=== PATIENT | male | born 1940 | race Caucasian/White ===

== ENCOUNTER 2017-07-02 05:49 | Day surgery (SDC) | payer MEDICARE, OTHER ==
[2017-07-01 12:51] LABS: BASOPHILS % (AUTO) 0.2 % (0-1); EOSINOPHILS # (AUTO) 0.3 X10'3 (0-0.9); EOSINOPHILS % (AUTO) 3.8 % (0-6); HEMATOCRIT 38.4 % (42.0-52.0); HEMOGLOBIN 13.6 g/dl (14.0-17.9); LYMPHOCYTES # (AUTO) 1.3 X10'3 (1.1-4.8); LYMPHOCYTES % (AUTO) 15.2 % (21-51); MEAN CORPUSCULAR HEMOGLOBIN 35.8 PG (27.0-31.0); MEAN CORPUSCULAR HGB CONC 35.3 % (33.0-36.5); MEAN CORPUSCULAR VOLUME 101.4 FL (78-98); MEAN PLATELET VOLUME 7.6 FL (7.4-10.4); MONOCYTES # (AUTO) 1.1 X10'3 (0-0.9); MONOCYTES % (AUTO) 12.8 % (2-12); PLATELET COUNT 234 X10'3 (140-440); RED BLOOD COUNT 3.79 X10'6 (4.70-6.10); RED CELL DISTRIBUTION WIDTH 13.6 % (11.5-14.5); WHITE BLOOD COUNT 8.9 X10'3 (4.5-11.0)
[2017-07-01 13:00] LABS: ALBUMIN 3.5 G/DL (3.4-5.0); ANION GAP 9 (8-16); BLOOD UREA NITROGEN 12 MG/DL (7-18); CALCIUM 8.4 MG/DL (8.5-10.1); CHLORIDE 95 MMOL/L (99-107); GLUCOSE 106 MG/DL (70-104); POTASSIUM 4.9 MMOL/L (3.5-5.1); SODIUM 130 MMOL/L (135-145); TOTAL CARBON DIOXIDE 26.4 MMOL/L (24-32); eGFR > 90 ML/MIN
[2017-07-01 13:02] LABS: INR 1.1 INR; PARTIAL THROMBOPLASTIN TIME 30 SECONDS (22-32); PROTHROMBIN TIME 11.2 SECONDS (9.0-12.0)
[~2017-07-02] VITALS: Ht 180.3 cm; Wt 84.3 kg
[2017-07-02] VITALS (16 sets, daily range): BP systolic 122–158; BP diastolic 65–87
[~2017-07-02 05:49] MED LIST: ASPI-1009 PO; ATEN-169 PO; CLOP75TA35 PO; LOSA25TA96 PO; MAGN400O6 PO; MULT-1074 PO; OMEP-84 PO; SIMV10TA2 PO
[2017-07-02] MEDS ORDERED: ASPI-611 PO (06:14)
[2017-07-02] MEDS ORDERED: LORazepam 0.5 MG tablet PO PRN (06:15)
[2017-07-02] MEDS ORDERED: normal saline 1000ml 1,000 ML IV SCH (06:15)
[2017-07-02] MEDS ORDERED: diphenhydrAMINE 25mg capsule PO PRN (06:15)
[2017-07-02] MEDS ORDERED: iohexol 350MG/ML 100ml bottle IV ONE ×2 (08:51→10:00)
[2017-07-02] MEDS ORDERED: LIDOcaine 1%/PF (10mg/ml) 5ml vial ONE (08:51)
[2017-07-02] MEDS ORDERED: heparin 1,000unit/ml 10ml vial 10 ML ONE (08:51)
[2017-07-02] MEDS ORDERED: fentaNYL/PF 50MCG/1 ML 2ML syringe ONE (08:51)
[2017-07-02] MEDS ORDERED: iohexol 350 MG/ML 50ML vial IV ONE (08:51)
[2017-07-02] MEDS ORDERED: midazolam 2 mg/2 ml injection ONE (08:51)
[2017-07-02] MEDS ORDERED: nitroGLYCERIN-Tridil 50MG/D5W 250 ML IV ONE (08:52)
[2017-07-02 13:10] LABS: ISTAT HGB ART 12.9 g/dl (14.0-18.0); ISTAT Hct ART 38 %PCV (42-52); ISTAT Hct MIX 38 %PCV (42-52); ISTAT O2 SATURATION ARTERIAL 98 % (95-98); ISTAT O2 SATURATION MIX VENOUS 69 % (60-80); ISTAT SOURCE ART; ISTAT SOURCE MIX
== END 2017-07-02 16:05 | disposition home or self-care (01) ==
LOC: SSTAY O 05:49
PROVIDERS: ATTEND Internal Medicine Cardiovascular Disease
DX: I25.10 Atherosclerotic heart disease of native coronary artery without angina pectoris (principal); E78.4 Other hyperlipidemia; Z95.1 Presence of aortocoronary bypass graft; I25.2 Old myocardial infarction; Z98.890 Other specified postprocedural states; I11.0 Hypertensive heart disease with heart failure; I50.30 Unspecified diastolic (congestive) heart failure; Z90.49 Acquired absence of other specified parts of digestive tract; N40.0 Benign prostatic hyperplasia without lower urinary tract symptoms; K21.9 Gastro-esophageal reflux disease without esophagitis; Z79.82 Long term (current) use of aspirin; Z87.891 Personal history of nicotine dependence; E78.00 Pure hypercholesterolemia, unspecified; I48.91 Unspecified atrial fibrillation
CPT/HCPCS: 36415; 80048; 82803; 85014; 85025; 85610; 85730; 93005; 93461; 93567; A6257; C1769; C1894; J1644; J2001; J2250; J3010; J3490; J7030; Q0163; Q9967; 99152; 99153; A4620

== ENCOUNTER 2017-09-08 05:47 | Day surgery (SDC) | payer MEDICARE, OTHER ==
[2017-09-07 14:01] LABS: BASOPHILS % (AUTO) 0 % (0-1); EOSINOPHILS # (AUTO) 0.2 X10'3 (0-0.9); HEMATOCRIT 40.6 % (42.0-52.0); HEMOGLOBIN 13.9 g/dl (14.0-17.9); LYMPHOCYTES # (AUTO) 1.3 X10'3 (1.1-4.8); LYMPHOCYTES % (AUTO) 22.6 % (21-51); MEAN CORPUSCULAR HEMOGLOBIN 35.6 PG (27.0-31.0); MEAN CORPUSCULAR HGB CONC 34.3 % (33.0-36.5); MEAN CORPUSCULAR VOLUME 103.9 FL (78-98); MEAN PLATELET VOLUME 7.2 FL (7.4-10.4); MONOCYTES # (AUTO) 1.1 X10'3 (0-0.9); MONOCYTES % (AUTO) 18.2 % (2-12); NEUTROPHILS # (AUTO) 3.3 X10'3 (1.8-7.7); NEUTROPHILS % (AUTO) 55.2 % (42-75); PLATELET COUNT 224 X10'3 (140-440); RED BLOOD COUNT 3.91 X10'6 (4.70-6.10); RED CELL DISTRIBUTION WIDTH 13.3 % (11.5-14.5); WHITE BLOOD COUNT 5.9 X10'3 (4.5-11.0)
[2017-09-07 14:10] LABS: ALBUMIN 3.8 G/DL (3.4-5.0); ANION GAP 6 (8-16); BLOOD UREA NITROGEN 7 MG/DL (7-18); BUN/CREATININE RATIO 9.2 (5.4-32.0); CALCIUM 8.9 MG/DL (8.5-10.1); CHLORIDE 90 MMOL/L (99-107); CREATININE 0.76 MG/DL (0.60-1.10); GLUCOSE 105 MG/DL (70-104); POTASSIUM 4.7 MMOL/L (3.5-5.1); SODIUM 124 MMOL/L (135-145); TOTAL CARBON DIOXIDE 28.3 MMOL/L (24-32); eGFR > 90 ML/MIN
[2017-09-07 14:11] LABS: INR 1.1 INR; PARTIAL THROMBOPLASTIN TIME 30 SECONDS (22-32); PROTHROMBIN TIME 11.1 SECONDS (9.0-12.0)
[~2017-09-08] VITALS: Ht 180.3 cm; Wt 80.8 kg
[2017-09-08] VITALS (18 sets, daily range): BP systolic 86–161; BP diastolic 54–81
[~2017-09-08 05:47] MED LIST changes: -ASPI-1009 PO; +ASPI-611 PO; -MAGN400O6 PO; -OMEP-84 PO
[2017-09-08] MEDS ORDERED: normal saline 1000ml 1,000 ML IV SCH ×2 (06:10→10:00)
[2017-09-08] MEDS ORDERED: CHOL100046 PO (06:17)
[2017-09-08] MEDS ORDERED: ceFAZolin 1GM/D5W- ADD-VANTAGE 50 ML IV ONE ×2 (06:30→07:29)
[2017-09-08] MEDS ORDERED: LIDOcaine 1% w/EPI 1:100,000 30ml vial (MDV) ONE (07:28)
[2017-09-08] MEDS ORDERED: ceFAZolin 1000mg inj ONE (07:28)
[2017-09-08] MEDS ORDERED: fentaNYL/PF 50MCG/1 ML 2ML syringe ONE (07:28)
[2017-09-08] MEDS ORDERED: midazolam 2 mg/2 ml injection ONE ×3 (07:28→08:49)
[2017-09-08] MEDS ORDERED: HYDROcodone/acetaminophen 10/325mg tab PO PRN (10:00)
[2017-09-08] MEDS ORDERED: HYDROcodone/acetaminophen 5mg/325mg tablet PO PRN (10:00)
[2017-09-08] MEDS ORDERED: ceFAZolin 1GM/D5W- ADD-VANTAGE 50 ML IV SCH (16:00)
== END 2017-09-08 16:00 | disposition home or self-care (01) ==
LOC: SSTAY O 05:47
PROVIDERS: ATTEND Internal Medicine Cardiovascular Disease
DX: I49.5 Sick sinus syndrome (principal); E78.5 Hyperlipidemia, unspecified; I25.10 Atherosclerotic heart disease of native coronary artery without angina pectoris; I35.0 Nonrheumatic aortic (valve) stenosis; I44.1 Atrioventricular block, second degree; I45.2 Bifascicular block; I44.4 Left anterior fascicular block; I25.2 Old myocardial infarction; I11.0 Hypertensive heart disease with heart failure; I50.30 Unspecified diastolic (congestive) heart failure; K21.9 Gastro-esophageal reflux disease without esophagitis; N40.0 Benign prostatic hyperplasia without lower urinary tract symptoms; M19.90 Unspecified osteoarthritis, unspecified site; Z98.41 Cataract extraction status, right eye; Z90.89 Acquired absence of other organs; Z95.0 Presence of cardiac pacemaker; Z95.1 Presence of aortocoronary bypass graft; Z95.2 Presence of prosthetic heart valve; Z98.42 Cataract extraction status, left eye; Z72.89 Other problems related to lifestyle; Z86.74 Personal history of sudden cardiac arrest; Z87.891 Personal history of nicotine dependence; Z79.82 Long term (current) use of aspirin; Z79.899 Other long term (current) drug therapy; Z98.890 Other specified postprocedural states
CPT/HCPCS: 33208; 36415; 71046; 80048; 85025; 85610; 85730; 93005; 99152; 99153; A4565; A6449; C1785; C1894; C1898; J0690; J2250; J3010; J3490; J7030; A4620

== ENCOUNTER 2019-02-12 10:39 | Inpatient (IN) | payer MEDICARE, OTHER ==
[~2019-02-12] VITALS: Ht 180.3 cm; Wt 75.0 kg
[~2019-02-12 10:39] MED LIST changes: +CHOL100046 PO
[2019-02-12 11:20] LABS: BASOPHILS % (AUTO) 0.5 % (0-1); EOSINOPHILS # (AUTO) 0.2 X10'3 (0-0.9); EOSINOPHILS % (AUTO) 3.3 % (0-6); HEMATOCRIT 39.6 % (42.0-52.0); HEMOGLOBIN 13.6 g/dl (14.0-17.9); LYMPHOCYTES # (AUTO) 0.9 X10'3 (1.1-4.8); LYMPHOCYTES % (AUTO) 15.5 % (21-51); MEAN CORPUSCULAR HEMOGLOBIN 36.9 PG (27.0-31.0); MEAN CORPUSCULAR HGB CONC 34.3 g/dL (33.0-36.5); MEAN CORPUSCULAR VOLUME 107.5 FL (78-98); MEAN PLATELET VOLUME 7.8 FL (7.4-10.4); MONOCYTES # (AUTO) 1.1 X10'3 (0-0.9); NEUTROPHILS # (AUTO) 3.5 X10'3 (1.8-7.7); NEUTROPHILS % (AUTO) 61.7 % (42-75); PLATELET COUNT 163 X10'3 (140-440); RED BLOOD COUNT 3.68 X10'6 (4.70-6.10); RED CELL DISTRIBUTION WIDTH 12.7 % (11.5-14.5); WHITE BLOOD COUNT 5.6 X10'3 (4.5-11.0)
[2019-02-12 11:34] LABS: PARTIAL THROMBOPLASTIN TIME 29 SECONDS (22-32)
[2019-02-12] MEDS ORDERED: furosemide 10 MG/1 ML 10ml inj IV ONE (11:35)
[2019-02-12 11:39] LABS: ALANINE AMINOTRANSFERASE 28 U/L (12-78); ALBUMIN 3.6 G/DL (3.4-5.0); ALKALINE PHOSPHATASE 73 IU/L (46-116); ANION GAP 7 (8-16); ASPARTATE AMINO TRANSFERASE 21 U/L (10-37); BILIRUBIN,TOTAL 1.1 MG/DL (0.1-1.0); BLOOD UREA NITROGEN 15 MG/DL (7-18); BUN/CREATININE RATIO 17.9 (5.4-32.0); CALCIUM 8.9 MG/DL (8.5-10.1); CHLORIDE 99 MMOL/L (99-107); CREATININE 0.84 MG/DL (0.60-1.10); GLUCOSE 101 MG/DL (70-104); POTASSIUM 3.9 MMOL/L (3.5-5.1); SODIUM 132 MMOL/L (135-145); TOTAL CARBON DIOXIDE 25.7 MMOL/L (24-32); TOTAL PROTEIN 7.2 G/DL (6.4-8.2); eGFR 88 ML/MIN
[2019-02-12 11:57] LABS: PLATELET ESTIMATE NORMAL; TOTAL CELLS COUNTED 100
[2019-02-12 11:58] LABS: LARGE PLATELETS FEW
[2019-02-12] MEDS ORDERED: potassium CL 10mEq/100ml bag 100 ML IV PRN ×2 (12:45)
[2019-02-12] MEDS ORDERED: nitroGLYCERIN 0.4mg SUBLingual tab SL PRN (12:45)
[2019-02-12] MEDS ORDERED: mag hydrox/Alum hydrox/simeth 30ml oral suspension PO PRN (12:45)
[2019-02-12] MEDS ORDERED: magnesium hydroxide 30ml (MOM) UD suspension PO PRN (12:45)
[2019-02-12] MEDS ORDERED: magnesium 2GM in 50ml NS 50 ML IV PRN (12:45)
[2019-02-12] MEDS ORDERED: magnesium 4gm in 100ml NS 100 ML IV PRN (12:45)
[2019-02-12] MEDS ORDERED: magnesium Cl slow-release 64mg tablet PO PRN (12:45)
[2019-02-12] MEDS ORDERED: potassium Cl 20 mEq SR tablet PO PRN ×2 (12:45)
[2019-02-12] MEDS ORDERED: acetaminophen 325mg tablet PO PRN ×2 (12:45)
[2019-02-12] MEDS ORDERED: ondansetron/PF 4mg/2ml inj IV PRN (12:45)
[2019-02-12] MEDS ORDERED: ATEN-169 PO (12:46)
[2019-02-12] MEDS ORDERED: [UNRECOGNIZED DRUG - OTHER] PO (12:48)
[2019-02-12 12:54] LABS: CLARITY,URINE CLEAR (Clear); COLOR,URINE YELLOW (Yellow); GLUCOSE, URINE NEGATIVE (Neg); KETONES,URINE NEGATIVE (Neg); LEUKOCYTE ESTERASE ,URINE NEGATIVE (Neg); NITRITES, URINE NEGATIVE (Neg); OCCULT BLOOD,URINE NEGATIVE (Neg); PH,URINE 5.5 (4.8-8.0); PROTEIN,URINE NEGATIVE (Neg); UROBILINOGEN,URINE 0.2 E.U/dL (0.2-1.0)
[2019-02-12 12:57] LABS: UA COLLECTION TYPE NON-SPECIFIED
--- NOTE | 2019-02-12 15:30 | NUR ---
Patient in room [facility]. I have received report from ED RN and had the opportunity to ask questions and assume patient care.
--- NOTE | 2019-02-12 18:30 | NUR ---
Problems reprioritized. Patient report given, questions answered & plan of care reviewed with ZORAN LUNA.
--- NOTE | 2019-02-12 18:44 | NUR ---
Patient in room [facility]. I have received report from Yeison London and had the opportunity to ask questions and assume patient care. Addendum: 02/12/19 at 1845 by Emelia Aguilar RN Amended: Links added.
[2019-02-12 19:30] VITALS: BP 127/78
[2019-02-12] MEDS ORDERED: [UNRECOGNIZED DRUG - OTHER] PO SCH (20:00)
--- NOTE | 2019-02-12 20:15 | NUR ---
pt took hs meds at this time and talked with son on the phone.
[2019-02-12] MEDS: atorvastatin 10mg tablet PO SCH (20:31)
[2019-02-12] MEDS: furosemide 20 MG/2 ML vial IV SCH (20:31)
--- NOTE | 2019-02-12 21:59 | NUR ---
resting without changes.
--- NOTE | 2019-02-12 23:04 | NUR ---
pt awoke briefly and batteries changed. no complaints.
[2019-02-13] VITALS: BP 129/85
--- NOTE | 2019-02-13 00:18 | NUR ---
resting without changes
--- NOTE | 2019-02-13 02:15 | NUR ---
resting without changes.
--- NOTE | 2019-02-13 03:29 | NUR ---
resting without changes.
--- NOTE | 2019-02-13 03:33 | NUR ---
awoke ton void 450cc cl yellow urine out and sob with exertion. sats 97%and Hr 102, called tele heart rate back down to 84-85 and paced with underlying afib. pt ok now.
--- NOTE | 2019-02-13 03:44 | NUR ---
is unit given to pt and texhing done. x5 used best range at 500.
--- NOTE | 2019-02-13 04:54 | NUR ---
resting eyes closed without s&s of distress at this time.
--- NOTE | 2019-02-13 06:11 | NUR ---
Problems reprioritized. Patient report given, questions answered & plan of care reviewed with Yeison London. Addendum: 02/13/19 at 0611 by Emelia Aguilar RN Amended: Links added.
[2019-02-13 06:15] LABS: BASOPHILS % (AUTO) 0.6 % (0-1); EOSINOPHILS # (AUTO) 0.3 X10'3 (0-0.9); HEMOGLOBIN 12.9 g/dl (14.0-17.9); LYMPHOCYTES # (AUTO) 0.8 X10'3 (1.1-4.8); LYMPHOCYTES % (AUTO) 15.5 % (21-51); MEAN CORPUSCULAR HEMOGLOBIN 36.7 PG (27.0-31.0); MEAN CORPUSCULAR HGB CONC 34.1 g/dL (33.0-36.5); MEAN CORPUSCULAR VOLUME 107.6 FL (78-98); MEAN PLATELET VOLUME 8.2 FL (7.4-10.4); MONOCYTES # (AUTO) 1.2 X10'3 (0-0.9); MONOCYTES % (AUTO) 22.2 % (2-12); NEUTROPHILS % (AUTO) 56.7 % (42-75); PLATELET COUNT 161 X10'3 (140-440); RED BLOOD COUNT 3.53 X10'6 (4.70-6.10); RED CELL DISTRIBUTION WIDTH 12.6 % (11.5-14.5); WHITE BLOOD COUNT 5.3 X10'3 (4.5-11.0)
--- NOTE | 2019-02-13 06:30 | NUR ---
Patient in room [facility]. I have received report from Emelia LUNA and had the opportunity to ask questions and assume patient care.
[2019-02-13 06:34] LABS: ALBUMIN 3.2 G/DL (3.4-5.0); ANION GAP 7 (8-16); BLOOD UREA NITROGEN 11 MG/DL (7-18); BUN/CREATININE RATIO 12.6 (5.4-32.0); CALCIUM 9.1 MG/DL (8.5-10.1); CHLORIDE 98 MMOL/L (99-107); CREATININE 0.87 MG/DL (0.60-1.10); GLUCOSE 96 MG/DL (70-104); MAGNESIUM 1.7 MG/DL (1.5-2.4); POTASSIUM 3.7 MMOL/L (3.5-5.1); SODIUM 134 MMOL/L (135-145); TOTAL CARBON DIOXIDE 29.5 MMOL/L (24-32); eGFR 85 ML/MIN
[2019-02-13 07:38] VITALS: BP 129/88
[2019-02-13] MEDS: K and/or MAG REPLACEMENT MC SCH (08:00)
[2019-02-13] MEDS: clopidogrel 75mg tablet PO SCH (08:17)
[2019-02-13] MEDS: multivitamins, therapeutics tablet PO SCH (08:17)
[2019-02-13] MEDS: vitamin D (cholecalciferol) 1,000 unit tablet PO SCH (08:17)
[2019-02-13] MEDS: atenolol 50mg tablet PO SCH (08:18)
[2019-02-13] MEDS: losartan 50mg tablet PO SCH (08:19)
[2019-02-13] MEDS: furosemide 20 MG/2 ML vial IV SCH ×2 (08:20→19:49)
[2019-02-13] MEDS: enoxaparin 40mg/0.4ml syringe SQ SCH (08:20)
[2019-02-13] MEDS ORDERED: guaiFENesin 200 MG/10 ML oral syrup UD cup PO PRN (16:45)
[2019-02-13] MEDS ORDERED: ipratropium/albuterol 3ml nebule NEB PRN (16:45)
[2019-02-13 17:42] VITALS: BP 129/88
[2019-02-13 18:00] VITALS: BP 115/66
--- NOTE | 2019-02-13 18:30 | NUR ---
Problems reprioritized. Patient report given, questions answered & plan of care reviewed with Emelia LUNA.
[2019-02-13] MEDS: fluticasone nasal spray 16GM bottle NS SCH (18:31)
--- NOTE | 2019-02-13 18:40 | NUR ---
Patient in room [facility]. I have received report from KRISTIN LUNA and had the opportunity to ask questions and assume patient care. Addendum: 02/13/19 at 1841 by Emelia Aguilar RN Amended: Links added.
--- NOTE | 2019-02-13 19:40 | NUR ---
pt took hs meds no complaints states he feels better.
[2019-02-13] MEDS: atorvastatin 10mg tablet PO SCH (19:50)
--- NOTE | 2019-02-13 21:40 | NUR ---
pt resting eyes closed without changes.
--- NOTE | 2019-02-13 23:40 | NUR ---
pt resting without changes. no s&s of distress.
[2019-02-14] VITALS: BP 113/75
--- NOTE | 2019-02-14 01:02 | NUR ---
Student documentation: I have reviewed and agree with all interventions, assessments performed and documented by Danica gupta Rn student.Student Medication Administration: For this medication-pass time frame, all medication were reviewed, dispensed, administered and documented per hospital policy by Danica gupta Rn student. Addendum: 02/14/19 at 0103 by Emelia Aguilar RN Amended: Links added.
--- NOTE | 2019-02-14 02:34 | NUR ---
resting eyes closed without s&s of distress at this time.
[2019-02-14 06:24] LABS: BASOPHILS % (AUTO) 0.5 % (0-1); EOSINOPHILS # (AUTO) 0.3 X10'3 (0-0.9); EOSINOPHILS % (AUTO) 4.8 % (0-6); HEMOGLOBIN 13.3 g/dl (14.0-17.9); LYMPHOCYTES # (AUTO) 1.1 X10'3 (1.1-4.8); LYMPHOCYTES % (AUTO) 19.9 % (21-51); MEAN CORPUSCULAR HEMOGLOBIN 37.3 PG (27.0-31.0); MEAN CORPUSCULAR HGB CONC 34.9 g/dL (33.0-36.5); MEAN CORPUSCULAR VOLUME 106.9 FL (78-98); MEAN PLATELET VOLUME 8.2 FL (7.4-10.4); MONOCYTES # (AUTO) 1.1 X10'3 (0-0.9); MONOCYTES % (AUTO) 21.5 % (2-12); NEUTROPHILS # (AUTO) 2.8 X10'3 (1.8-7.7); NEUTROPHILS % (AUTO) 53.3 % (42-75); PLATELET COUNT 172 X10'3 (140-440); RED BLOOD COUNT 3.56 X10'6 (4.70-6.10); RED CELL DISTRIBUTION WIDTH 12.8 % (11.5-14.5); WHITE BLOOD COUNT 5.3 X10'3 (4.5-11.0)
--- NOTE | 2019-02-14 06:28 | NUR ---
Problems reprioritized. Patient report given, questions answered & plan of care reviewed with Mayra London. Addendum: 02/14/19 at 0629 by Emelia Aguilar RN Amended: Links added.
--- NOTE | 2019-02-14 06:34 | NUR ---
Patient in room [facility]. I have received report from JEREMY MEEHAN and had the opportunity to ask questions and assume patient care.
[2019-02-14 06:36] LABS: ALBUMIN 3.1 G/DL (3.4-5.0); ANION GAP 6 (8-16); BLOOD UREA NITROGEN 14 MG/DL (7-18); BUN/CREATININE RATIO 15.9 (5.4-32.0); CALCIUM 8.5 MG/DL (8.5-10.1); CHLORIDE 95 MMOL/L (99-107); CREATININE 0.88 MG/DL (0.60-1.10); GLUCOSE 89 MG/DL (70-104); MAGNESIUM 1.8 MG/DL (1.5-2.4); POTASSIUM 3.8 MMOL/L (3.5-5.1); SODIUM 130 MMOL/L (135-145); TOTAL CARBON DIOXIDE 29.4 MMOL/L (24-32); eGFR 84 ML/MIN
[2019-02-14] MEDS: vitamin D (cholecalciferol) 1,000 unit tablet PO SCH (07:24)
[2019-02-14] MEDS: atenolol 50mg tablet PO SCH (07:24)
[2019-02-14] MEDS: multivitamins, therapeutics tablet PO SCH (07:24)
[2019-02-14] MEDS: furosemide 20 MG/2 ML vial IV SCH (07:25)
[2019-02-14] MEDS: losartan 50mg tablet PO SCH (07:25)
[2019-02-14] MEDS: clopidogrel 75mg tablet PO SCH (07:25)
[2019-02-14] MEDS: enoxaparin 40mg/0.4ml syringe SQ SCH (07:26)
[2019-02-14] MEDS: fluticasone nasal spray 16GM bottle NS SCH (07:27)
[2019-02-14 08:00] VITALS: BP 120/77
[2019-02-14] MEDS: K and/or MAG REPLACEMENT MC SCH (08:00)
[2019-02-14 08:54] LABS: TOTAL CELLS COUNTED 100
[2019-02-14 08:55] LABS: PLATELET ESTIMATE NORMAL
[2019-02-14] MEDS ORDERED: FURO-149 PO (11:54)
[2019-02-14 12:00] VITALS: BP 98/66
--- NOTE | 2019-02-14 12:48 | NUR ---
Patient in room [facility]. I have received report from Liseth and had the opportunity to ask questions and assume patient care. Addendum: 02/14/19 at 1250 by Garcia ROCA Patient in room [facility]. I have received report from Aurora and had the opportunity to ask questions and assume patient care.
--- NOTE | 2019-02-14 12:50 | NUR ---
Gave patient discharge teaching. He verbally stated that he understood everything we talked about and did not have any questions. He is stable and alert & oriented. He will have his pick him up after he is done eating lunch. I Discussed new medication and some of the side effects and he is aware of the doctor recommedation for the change in BP medication.
--- NOTE | 2019-02-14 15:10 | NUR ---
Student documentation: I have reviewed and agree with all interventions, assessments performed and documented by SN RADAMES. Student Medication Administration: For this medication-pass time frame, all medication were reviewed, dispensed, administered and documented per hospital policy by SN RADAMES.
== END 2019-02-14 14:30 | disposition home or self-care (01) | DRG 202 ==
LOC: ER 10:39 → ED HOLD 13:06 → EDBEDREQ 14:42 → SUR 3N 15:21
PROVIDERS: ADMIT Hospitalist; ATTEND Hospitalist
DX: J20.9 Acute bronchitis, unspecified (principal); I50.33 Acute on chronic diastolic (congestive) heart failure; E78.00 Pure hypercholesterolemia, unspecified; I11.0 Hypertensive heart disease with heart failure; I25.10 Atherosclerotic heart disease of native coronary artery without angina pectoris; I48.91 Unspecified atrial fibrillation; G89.29 Other chronic pain; M54.9 Dorsalgia, unspecified; R06.03 Acute respiratory distress; K21.9 Gastro-esophageal reflux disease without esophagitis; N40.0 Benign prostatic hyperplasia without lower urinary tract symptoms; I25.2 Old myocardial infarction; Z82.3 Family history of stroke; Z82.49 Family history of ischemic heart disease and other diseases of the circulatory system; Z90.49 Acquired absence of other specified parts of digestive tract; Z95.1 Presence of aortocoronary bypass graft; Z95.2 Presence of prosthetic heart valve; Z88.1 Allergy status to other antibiotic agents; Z86.718 Personal history of other venous thrombosis and embolism; Z79.899 Other long term (current) drug therapy; Z79.82 Long term (current) use of aspirin
CPT/HCPCS: 36415; 71045; 80048; 80053; 81003; 83605; 83735; 83880; 84145; 84484; 85025; 85610; 85730; 87040; 87081; 93306; 94760; 96374; 97116; 97161; 99285; G0378; J1650; J1940

== ENCOUNTER 2019-03-24 10:29 | Observation (INO) | payer MEDICARE, OTHER ==
[~2019-03-24] VITALS: Ht 180.3 cm; Wt 76.8 kg
[~2019-03-24 10:29] MED LIST changes: -ASPI-611 PO; +FURO-149 PO; +[UNRECOGNIZED DRUG - OTHER] PO
[2019-03-24 11:06] LABS: BASOPHILS % (AUTO) 0.6 % (0-1); EOSINOPHILS # (AUTO) 0.1 X10'3 (0-0.9); EOSINOPHILS % (AUTO) 2.1 % (0-6); HEMATOCRIT 40.3 % (42.0-52.0); MEAN CORPUSCULAR HEMOGLOBIN 36.5 PG (27.0-31.0); MEAN CORPUSCULAR HGB CONC 34.8 g/dL (33.0-36.5); MEAN CORPUSCULAR VOLUME 104.8 FL (78-98); MEAN PLATELET VOLUME 8.1 FL (7.4-10.4); MONOCYTES # (AUTO) 1.1 X10'3 (0-0.9); MONOCYTES % (AUTO) 18.1 % (2-12); NEUTROPHILS # (AUTO) 3.9 X10'3 (1.8-7.7); NEUTROPHILS % (AUTO) 63.2 % (42-75); PLATELET COUNT 179 X10'3 (140-440); RED BLOOD COUNT 3.85 X10'6 (4.70-6.10); RED CELL DISTRIBUTION WIDTH 13.6 % (11.5-14.5); WHITE BLOOD COUNT 6.2 X10'3 (4.5-11.0)
[2019-03-24 11:25] LABS: ALANINE AMINOTRANSFERASE 24 U/L (12-78); ALBUMIN 3.6 G/DL (3.4-5.0); ALKALINE PHOSPHATASE 81 IU/L (46-116); ANION GAP 8 (8-16); ASPARTATE AMINO TRANSFERASE 23 U/L (10-37); BILIRUBIN,TOTAL 1.4 MG/DL (0.1-1.0); BLOOD UREA NITROGEN 15 MG/DL (7-18); BUN/CREATININE RATIO 14.9 (5.4-32.0); CHLORIDE 95 MMOL/L (99-107); CREATININE 1.01 MG/DL (0.60-1.10); GLUCOSE 112 MG/DL (70-104); MAGNESIUM 1.7 MG/DL (1.5-2.4); POTASSIUM 4.5 MMOL/L (3.5-5.1); SODIUM 129 MMOL/L (135-145); TOTAL CARBON DIOXIDE 26.4 MMOL/L (24-32); TOTAL PROTEIN 7.2 G/DL (6.4-8.2); eGFR 71 ML/MIN
[2019-03-24 11:26] LABS: PLATELET ESTIMATE NORMAL; TOTAL CELLS COUNTED 100
[2019-03-24] MEDS ORDERED: iohexol 350MG/ML 100ml bottle IV ONE (11:30)
--- NOTE | 2019-03-24 11:54 | NUR ---
RELIEVING RN FOR BREAK, PT IS IN CT, FAMILY AT BEDSIDE
[2019-03-24] MEDS: losartan 50mg tablet PO SCH (13:04)
[2019-03-24] MEDS: atenolol 50mg tablet PO SCH (13:05)
[2019-03-24] MEDS: vitamin D (cholecalciferol) 1,000 unit tablet PO SCH (13:06)
[2019-03-24] MEDS: clopidogrel 75mg tablet PO SCH (13:06)
[2019-03-24] MEDS: multivitamins, therapeutics tablet PO SCH (13:07)
--- NOTE | 2019-03-24 13:25 | NUR ---
pt took all his medications this am.
[2019-03-24] MEDS ORDERED: mag hydrox/Alum hydrox/simeth 30ml oral suspension PO PRN (13:45)
[2019-03-24] MEDS ORDERED: magnesium hydroxide 30ml (MOM) UD suspension PO PRN (13:45)
[2019-03-24] MEDS ORDERED: ipratropium/albuterol 3ml nebule NEB PRN (13:45)
[2019-03-24] MEDS ORDERED: ondansetron/PF 4mg/2ml inj IV PRN (13:45)
[2019-03-24] MEDS ORDERED: acetaminophen 325mg tablet PO PRN (13:45)
[2019-03-24] MEDS: furosemide 40mg/4ml inj IV SCH (15:22)
--- NOTE | 2019-03-24 15:40 | NUR ---
Patient in room [facility]. I have received report from CASPER LUNA and had the opportunity to ask questions and assume patient care.
[2019-03-24 15:45] VITALS: BP 128/87
--- NOTE | 2019-03-24 17:24 | NUR ---
DOWN TO XRAY
[2019-03-24 18:00] VITALS: BP 129/79
--- NOTE | 2019-03-24 18:20 | NUR ---
Problems reprioritized. Patient report given, questions answered & plan of care reviewed with SHANICE LUNA.
[2019-03-24] MEDS ORDERED: atorvastatin 10mg tablet PO SCH (21:00)
[2019-03-24 22:00] VITALS: BP 127/71
[2019-03-25 06:00] VITALS: BP 127/80
[2019-03-25 06:03] LABS: BASOPHILS % (AUTO) 0.3 % (0-1); EOSINOPHILS # (AUTO) 0.2 X10'3 (0-0.9); EOSINOPHILS % (AUTO) 3.4 % (0-6); HEMATOCRIT 36.4 % (42.0-52.0); HEMOGLOBIN 12.6 g/dl (14.0-17.9); LYMPHOCYTES % (AUTO) 17.9 % (21-51); MEAN CORPUSCULAR HEMOGLOBIN 36.4 PG (27.0-31.0); MEAN CORPUSCULAR HGB CONC 34.6 g/dL (33.0-36.5); MEAN CORPUSCULAR VOLUME 105.3 FL (78-98); MONOCYTES # (AUTO) 1.1 X10'3 (0-0.9); MONOCYTES % (AUTO) 19.1 % (2-12); NEUTROPHILS # (AUTO) 3.4 X10'3 (1.8-7.7); NEUTROPHILS % (AUTO) 59.3 % (42-75); PLATELET COUNT 168 X10'3 (140-440); RED BLOOD COUNT 3.45 X10'6 (4.70-6.10); RED CELL DISTRIBUTION WIDTH 13.7 % (11.5-14.5); WHITE BLOOD COUNT 5.8 X10'3 (4.5-11.0)
--- NOTE | 2019-03-25 06:10 | NUR ---
Patient in room [facility]. I have received report from SHANICE LUNA and had the opportunity to ask questions and assume patient care.
[2019-03-25 06:21] LABS: ALANINE AMINOTRANSFERASE 21 U/L (12-78); ALKALINE PHOSPHATASE 72 IU/L (46-116); ANION GAP 7 (8-16); ASPARTATE AMINO TRANSFERASE 19 U/L (10-37); BILIRUBIN,TOTAL 1.4 MG/DL (0.1-1.0); BLOOD UREA NITROGEN 14 MG/DL (7-18); BUN/CREATININE RATIO 14.3 (5.4-32.0); CALCIUM 8.5 MG/DL (8.5-10.1); CHLORIDE 96 MMOL/L (99-107); CREATININE 0.98 MG/DL (0.60-1.10); GLUCOSE 93 MG/DL (70-104); POTASSIUM 3.8 MMOL/L (3.5-5.1); SODIUM 131 MMOL/L (135-145); TOTAL CARBON DIOXIDE 28.3 MMOL/L (24-32); TOTAL PROTEIN 6.1 G/DL (6.4-8.2); eGFR 74 ML/MIN
[2019-03-25] MEDS: clopidogrel 75mg tablet PO SCH (07:36)
[2019-03-25] MEDS: vitamin D (cholecalciferol) 1,000 unit tablet PO SCH (07:36)
[2019-03-25] MEDS: furosemide 40mg/4ml inj IV SCH (07:36)
[2019-03-25] MEDS: multivitamins, therapeutics tablet PO SCH (07:36)
[2019-03-25] MEDS: losartan 50mg tablet PO SCH (07:36)
[2019-03-25] MEDS: atenolol 50mg tablet PO SCH (07:36)
[2019-03-25] MEDS ORDERED: enoxaparin 40mg/0.4ml syringe SQ SCH (08:00)
[2019-03-25 10:00] VITALS: BP 112/72
[2019-03-25] MEDS ORDERED: FLU VACC QS2019-20(6MOS UP)/PF 60 MCG/0.5 ML SYRINGE IMVAC ONE (12:10)
[2019-03-25] MEDS ORDERED: pneumococcal 23-VAL P-sac vacc 25 mcg/0.5ml vial IMVAC ONE (12:10)
[2019-03-25] MEDS ORDERED: DOXY-243 PO (12:24)
[2019-03-25] MEDS ORDERED: FLUT16SP2 BOTHNARES (12:24)
[2019-03-25] MEDS ORDERED: MONT10TA21 PO (12:24)
--- NOTE | 2019-03-25 13:30 | NUR ---
PATIENT DC HOME SAFELY WITH SON. ALL BELONGINGS IN POSSESSION. PRESCRIPTIONS CALLED TO [facility]. PT VERBALIZES UNDERSTANDING OF DC INSTRUCTIONS.
== END 2019-03-25 13:55 | disposition home or self-care (01) ==
LOC: ER 10:30 → ED HOLD 13:42 → INTOOBSV 13:42 → ORTHO 4S 15:40
PROVIDERS: ADMIT Family Medicine; ATTEND Family Medicine
DX: R07.89 Other chest pain (principal); I11.0 Hypertensive heart disease with heart failure; I50.33 Acute on chronic diastolic (congestive) heart failure; I48.91 Unspecified atrial fibrillation; E78.00 Pure hypercholesterolemia, unspecified; I25.2 Old myocardial infarction; K21.9 Gastro-esophageal reflux disease without esophagitis; N40.0 Benign prostatic hyperplasia without lower urinary tract symptoms; E87.1 Hypo-osmolality and hyponatremia; I25.10 Atherosclerotic heart disease of native coronary artery without angina pectoris; E78.5 Hyperlipidemia, unspecified; Z23 Encounter for immunization; Z90.49 Acquired absence of other specified parts of digestive tract; Z95.1 Presence of aortocoronary bypass graft; Z90.89 Acquired absence of other organs; Z95.2 Presence of prosthetic heart valve; Z95.0 Presence of cardiac pacemaker; Z86.718 Personal history of other venous thrombosis and embolism; J90 Pleural effusion, not elsewhere classified; Z87.891 Personal history of nicotine dependence; Z79.02 Long term (current) use of antithrombotics/antiplatelets; Z79.899 Other long term (current) drug therapy; Z88.1 Allergy status to other antibiotic agents
CPT/HCPCS: 36415; 71046; 71275; 72040; 72070; 80053; 83605; 83735; 83880; 84484; 85025; 87040; 87081; 90732; 93005; 94760; 96372; 96374; 96376; 99284; G0008; G0009; G0378; J1940; Q2037; Q9967; J1650

== ENCOUNTER 2019-07-31 13:59 | Emergency (ER) | payer MEDICARE, OTHER ==
[~2019-07-31] VITALS: Ht 180.3 cm; Wt 75.0 kg
[~2019-07-31 13:59] MED LIST changes: +FLUT16SP2 BOTHNARES; +MONT10TA21 PO; -[UNRECOGNIZED DRUG - OTHER] PO
--- NOTE | 2019-07-31 14:20 | NUR ---
No IV started per VO Dr. Covington.
[2019-07-31] MEDS ORDERED: HYDROcodone/acetaminophen 10/325mg tab PO ONE (14:35)
[2019-07-31 14:37] LABS: BASOPHILS % (AUTO) 0.5 % (0-1); EOSINOPHILS # (AUTO) 0.2 X10'3 (0-0.9); EOSINOPHILS % (AUTO) 3.4 % (0-6); HEMATOCRIT 38.6 % (42.0-52.0); LYMPHOCYTES # (AUTO) 1.2 X10'3 (1.1-4.8); LYMPHOCYTES % (AUTO) 19.6 % (21-51); MEAN CORPUSCULAR HGB CONC 33.6 g/dL (33.0-36.5); MEAN CORPUSCULAR VOLUME 107.3 FL (78-98); NEUTROPHILS # (AUTO) 3.6 X10'3 (1.8-7.7); NEUTROPHILS % (AUTO) 59.5 % (42-75); PLATELET COUNT 185 X10'3 (140-440); RED CELL DISTRIBUTION WIDTH 14.3 % (11.5-14.5); WHITE BLOOD COUNT 6.1 X10'3 (4.5-11.0)
[2019-07-31] MEDS ORDERED: furosemide 20MG tablet PO ONE (14:45)
[2019-07-31 14:51] LABS: ALANINE AMINOTRANSFERASE 23 U/L (12-78); ALBUMIN 3.6 G/DL (3.4-5.0); ALBUMIN/GLOBULIN RATIO 0.9 (1.1-1.5); ALKALINE PHOSPHATASE 97 IU/L (46-116); ANION GAP 7 (8-16); ASPARTATE AMINO TRANSFERASE 23 U/L (10-37); BILIRUBIN,TOTAL 1.6 MG/DL (0.1-1.0); BLOOD UREA NITROGEN 11 MG/DL (7-18); BUN/CREATININE RATIO 8.9 (5.4-32.0); CALCIUM 8.7 MG/DL (8.5-10.1); CHLORIDE 103 MMOL/L (99-107); CREATININE 1.23 MG/DL (0.60-1.10); GLUCOSE 98 MG/DL (70-104); POTASSIUM 4.3 MMOL/L (3.5-5.1); SODIUM 136 MMOL/L (135-145); TOTAL CARBON DIOXIDE 26.5 MMOL/L (24-32); TOTAL PROTEIN 7.5 G/DL (6.4-8.2); eGFR 57 ML/MIN
[2019-07-31 14:56] LABS: LARGE PLATELETS FEW; PLATELET ESTIMATE NORMAL
[2019-07-31] MEDS ORDERED: HYDR-4383 PO (15:13)
[2019-07-31 15:29] VITALS: BP 139/65
== END 2019-07-31 16:21 | disposition home or self-care (01) ==
LOC: ER 13:59
DX: R07.89 Other chest pain (principal); I11.0 Hypertensive heart disease with heart failure; I50.23 Acute on chronic systolic (congestive) heart failure; I48.91 Unspecified atrial fibrillation; I25.10 Atherosclerotic heart disease of native coronary artery without angina pectoris; E78.00 Pure hypercholesterolemia, unspecified; I25.2 Old myocardial infarction; K21.9 Gastro-esophageal reflux disease without esophagitis; G89.29 Other chronic pain; Z86.718 Personal history of other venous thrombosis and embolism; Z90.49 Acquired absence of other specified parts of digestive tract; Z95.1 Presence of aortocoronary bypass graft; Z98.890 Other specified postprocedural states; Z88.1 Allergy status to other antibiotic agents; Z79.899 Other long term (current) drug therapy
CPT/HCPCS: 36415; 71045; 80053; 83880; 84484; 85025; 93005; 99285

== ENCOUNTER 2024-01-03 16:11 | Inpatient (IN) | payer MEDICARE, OTHER ==
[2024-01-03] VITALS (8 sets, daily range): BP systolic 111; BP diastolic 56; PULSE 81–110; RESP 18–28; TEMP 97.7; O2SAT 94–99
[~2024-01-03] VITALS: Ht 180.3 cm; Wt 87.5 kg
[~2024-01-03 16:11] MED LIST changes: +APIX5TAB3 PO; -ATEN-169 PO; -CHOL100046 PO; +CLOP75TA34 PO; -CLOP75TA35 PO; -FURO-149 PO; +FURO40TA4 PO; +LOSA-415 PO; -LOSA25TA96 PO; +METO-395 PO; -MONT10TA21 PO; -MULT-1074 PO; +SIMV-341 PO; -SIMV10TA2 PO; +sod chloride 0.9% 10ml flush syringe IV ONE
[2024-01-03] MEDS: normal saline 1000ml 1,000 ML IV ONE (16:42)
[2024-01-03] MEDS: normal saline 1000ML IV soln IVB ONE (16:42)
[2024-01-03 16:47] LABS: BASOPHILS % (AUTO) 0.3 % (0-1); EOSINOPHILS % (AUTO) 0.4 % (0-6); HEMATOCRIT 26.2 % (42.0-52.0); HEMOGLOBIN 8.9 g/dl (14.0-17.9); LYMPHOCYTES # (AUTO) 0.2 X10'3 (1.1-4.8); MEAN CORPUSCULAR HEMOGLOBIN 35.5 PG (27.0-31.0); MEAN CORPUSCULAR VOLUME 104.3 FL (78-98); MEAN PLATELET VOLUME 8.3 FL (7.4-10.4); MONOCYTES # (AUTO) 0.6 X10'3 (0-0.9); MONOCYTES % (AUTO) 6.1 % (2-12); NEUTROPHILS # (AUTO) 8.4 X10'3 (1.8-7.7); NEUTROPHILS % (AUTO) 91.2 % (42-75); PLATELET COUNT 205 X10'3 (140-440); RED BLOOD COUNT 2.51 X10'6 (4.70-6.10); RED CELL DISTRIBUTION WIDTH 13.9 % (11.5-14.5); WHITE BLOOD COUNT 9.2 X10'3 (4.5-11.0)
[2024-01-03 16:52] LABS: D-DIMER 0.58 MG/L FEU (0-0.50)
[2024-01-03] MEDS: meclizine 12.5mg tablet PO ONE (16:53)
[2024-01-03 17:02] LABS: ALBUMIN 2.3 G/DL (3.4-5.0); ANION GAP 9 (8-16); BLOOD UREA NITROGEN 25 MG/DL (7-18); BUN/CREATININE RATIO 17.5 (10.0-20.0); C-REACTIVE PROTEIN 7.95 MG/DL (0.0-0.5); CHLORIDE 102 MMOL/L (99-107); CREATININE 1.43 MG/DL (0.60-1.10); GLUCOSE 130 MG/DL (70-104); POTASSIUM 4.5 MMOL/L (3.5-5.1); PRO BRAIN NATRIURETIC PEPTIDE 6926 PG/ML (0-450); SODIUM 135 MMOL/L (135-145); TOTAL CARBON DIOXIDE 24.3 MMOL/L (24-32); eCRCL 42 ML/MIN; eGFR 47 ML/MIN
[2024-01-03] MEDS ORDERED: MIDO10TA PO (17:07)
[2024-01-03] MEDS ORDERED: OMEP20CA16 PO (17:09)
[2024-01-03] MEDS ORDERED: FLO0.4C PO (17:13)
[2024-01-03] MEDS ORDERED: APIX5TAB3 PO (17:15)
[2024-01-03] MEDS: ipratropium/albuterol 3ml nebule NEB ONE (17:52)
[2024-01-03] MEDS: methylPREDNISolone sod succ 125mg/2ml vial IV ONE (18:02)
[2024-01-03] MEDS: CefTRIAXone/D5W-Rocephin 1gm 50 ML IV ONE (18:02)
[2024-01-03] MEDS ORDERED: magnesium sulf-water 4G/100mL 100 ML IV PRN (19:10)
[2024-01-03] MEDS ORDERED: magnesium sulf-water 2g/50mL 50 ML IV PRN (19:10)
[2024-01-03] MEDS ORDERED: DEXTROSE 15 GM of carb/4 tabs (each vial/BOTTLE has 4 tablets) PO PRN ×2 (19:10)
[2024-01-03] MEDS ORDERED: dextrose 50%-water 50ml dispensing syringe IV PRN ×2 (19:10)
[2024-01-03] MEDS ORDERED: potassium Cl 40MEQ/1/2NS 520ml 520 ML IV PRN (19:10)
[2024-01-03] MEDS ORDERED: magnesium hydroxide 30ml (MOM) UD suspension PO PRN (19:10)
[2024-01-03] MEDS: dextrose 5%-water 1,000 ML IV SCH (19:10)
[2024-01-03] MEDS ORDERED: glucagon, human recombinant 1mg kit SUBCUT PRN (19:10)
[2024-01-03] MEDS ORDERED: potassium Cl 20 mEq SR tablet PO PRN ×2 (19:10)
[2024-01-03] MEDS ORDERED: ipratropium/albuterol 3ml nebule NEB SCH (20:00)
[2024-01-03] MEDS: docusate sod 100mg capsule PO SCH (20:00)
[2024-01-03] MEDS: K and/or MAG REPLACEMENT MC SCH (20:00)
[2024-01-03 20:15] LABS: ABG BASE EXCESS -2.4 mmol/L (-2.0-3.0); ABG HCO3 22.1 mmol/L (21.0-28.0); ABG PCO2 (T) 38.5 mmHg (35.0-48.0); ABG PH (T) 7.381 (7.350-7.450); ABG PO2 (T) 189.9 mmHg (83.0-108.0); ALLEN'S TEST POSITIVE; FCOHb 0.2 % (0.5-1.5); FLOW 7 L/min; FMetHb 0.3 % (0.0-1.5); FO2Hb 98.5 % (94.0-98.0); MODE MASK - SIMPLE; PATIENT TEMPERATURE 38.2
[2024-01-03] MEDS: atorvastatin 10mg tablet PO SCH (21:24)
[2024-01-03] MEDS: methylPREDNISolone sod succ 125mg/2ml vial IV SCH (21:25)
[2024-01-03] MEDS: metoprolol succinate 25mg (24-HOUR) SR. Tablet PO SCH (21:25)
[2024-01-03] MEDS: apixaban 5mg tablet PO SCH (21:25)
[2024-01-03] MEDS: HYDROcodone/acetaminophen 5mg/325mg tablet PO PRN (22:55)
[2024-01-03] MEDS: INSULIN LISPRO 100 UNIT/ML INSULN.PEN MULTI-DOSE SQ SCH (23:25)
[2024-01-03] MEDS: ipratropium/albuterol 3ml nebule NEB SCH (23:49)
[2024-01-04] VITALS (16 sets, daily range): BP systolic 87–144; BP diastolic 46–89; PULSE 73–105; RESP 16–23; TEMP 97.7–97.9; O2SAT 91–98
[2024-01-04 06:52] LABS: BASOPHILS % (AUTO) 0.1 % (0-1); EOSINOPHILS % (AUTO) 0 % (0-6); HEMATOCRIT 27.2 % (42.0-52.0); LYMPHOCYTES # (AUTO) 0.2 X10'3 (1.1-4.8); LYMPHOCYTES % (AUTO) 2.7 % (21-51); MEAN CORPUSCULAR HEMOGLOBIN 35.5 PG (27.0-31.0); MEAN CORPUSCULAR HGB CONC 33.2 g/dL (33.0-36.5); MEAN CORPUSCULAR VOLUME 106.9 FL (78-98); MEAN PLATELET VOLUME 8.3 FL (7.4-10.4); MONOCYTES # (AUTO) 0.3 X10'3 (0-0.9); MONOCYTES % (AUTO) 4.4 % (2-12); NEUTROPHILS # (AUTO) 5.3 X10'3 (1.8-7.7); NEUTROPHILS % (AUTO) 92.8 % (42-75); PLATELET COUNT 205 X10'3 (140-440); RED BLOOD COUNT 2.54 X10'6 (4.70-6.10); WHITE BLOOD COUNT 5.7 X10'3 (4.5-11.0)
[2024-01-04 07:27] LABS: ALANINE AMINOTRANSFERASE 24 U/L (12-78); ALBUMIN 2.3 G/DL (3.4-5.0); ALBUMIN/GLOBULIN RATIO 0.6 (1.1-1.5); ALKALINE PHOSPHATASE 75 IU/L (46-116); ANION GAP 11 (8-16); ASPARTATE AMINO TRANSFERASE 15 U/L (10-37); BILIRUBIN,TOTAL 0.6 MG/DL (0.1-1.0); BLOOD UREA NITROGEN 28 MG/DL (7-18); BUN/CREATININE RATIO 19.3 (10.0-20.0); CALCIUM 8.2 MG/DL (8.5-10.1); CHLORIDE 104 MMOL/L (99-107); CREATININE 1.45 MG/DL (0.60-1.10); FREE T4 (FREE THYROXINE) 1.48 NG/DL (0.73-1.40); GLUCOSE 151 MG/DL (70-104); MAGNESIUM 1.7 MG/DL (1.5-2.4); POTASSIUM 4.4 MMOL/L (3.5-5.1); SODIUM 138 MMOL/L (135-145); THYROID STIMULATING HORMONE 0.25 ulU/ml (0.34-4.50); TOTAL CARBON DIOXIDE 23.1 MMOL/L (24-32); eCRCL 41 ML/MIN; eGFR 46 ML/MIN
[2024-01-04] MEDS: tamsulosin 0.4mg capsule PO SCH (08:00)
[2024-01-04] MEDS: CefTRIAXone 2gm/D5W 50ml BAG 50 ML IV SCH (08:37)
[2024-01-04] MEDS: clopidogrel 75mg tablet PO SCH (08:37)
[2024-01-05] VITALS (20 sets, daily range): BP systolic 95–143; BP diastolic 53–73; PULSE 66–108; RESP 16–20; TEMP 97.5–97.7; O2SAT 93–100
[2024-01-05 05:39] LABS: EOSINOPHILS % (AUTO) 0 % (0-6); HEMOGLOBIN 8.7 g/dl (14.0-17.9); LYMPHOCYTES # (AUTO) 0.3 X10'3 (1.1-4.8); MEAN CORPUSCULAR HEMOGLOBIN 35.3 PG (27.0-31.0); MEAN PLATELET VOLUME 8.5 FL (7.4-10.4); WHITE BLOOD COUNT 9.2 X10'3 (4.5-11.0)
[2024-01-05 05:42] LABS: BASOPHILS % (AUTO) 0.1 % (0-1); MEAN CORPUSCULAR HGB CONC 33.5 g/dL (33.0-36.5); MEAN CORPUSCULAR VOLUME 105.2 FL (78-98); MONOCYTES # (AUTO) 0.3 X10'3 (0-0.9); MONOCYTES % (AUTO) 3.6 % (2-12); NEUTROPHILS # (AUTO) 8.6 X10'3 (1.8-7.7); NEUTROPHILS % (AUTO) 93.3 % (42-75); PLATELET COUNT 203 X10'3 (140-440); RED BLOOD COUNT 2.47 X10'6 (4.70-6.10)
[2024-01-05 05:48] LABS: ALANINE AMINOTRANSFERASE 25 U/L (12-78); ALBUMIN 2.4 G/DL (3.4-5.0); ALBUMIN/GLOBULIN RATIO 0.6 (1.1-1.5); ALKALINE PHOSPHATASE 67 IU/L (46-116); ANION GAP 12 (8-16); ASPARTATE AMINO TRANSFERASE 18 U/L (10-37); BILIRUBIN,TOTAL 0.4 MG/DL (0.1-1.0); BLOOD UREA NITROGEN 39 MG/DL (7-18); BUN/CREATININE RATIO 25.7 (10.0-20.0); CALCIUM 8.4 MG/DL (8.5-10.1); CHLORIDE 97 MMOL/L (99-107); CREATININE 1.52 MG/DL (0.60-1.10); GLUCOSE 159 MG/DL (70-104); MAGNESIUM 1.8 MG/DL (1.5-2.4); POTASSIUM 4.3 MMOL/L (3.5-5.1); SODIUM 130 MMOL/L (135-145); TOTAL CARBON DIOXIDE 20.8 MMOL/L (24-32); TOTAL PROTEIN 6.1 G/DL (6.4-8.2); eCRCL 39 ML/MIN; eGFR 44 ML/MIN
[2024-01-05] MEDS: apixaban 2.5mg tablet PO SCH (19:59)
[2024-01-06] VITALS (12 sets, daily range): BP systolic 114–138; BP diastolic 57–110; PULSE 70–106; RESP 16–24; TEMP 97.3–98.3; O2SAT 88–98
[2024-01-06 05:37] LABS: BASOPHILS % (AUTO) 0.1 % (0-1); EOSINOPHILS % (AUTO) 0 % (0-6); HEMATOCRIT 25.6 % (42.0-52.0); HEMOGLOBIN 8.5 g/dl (14.0-17.9); LYMPHOCYTES # (AUTO) 0.3 X10'3 (1.1-4.8); MEAN CORPUSCULAR HEMOGLOBIN 34.6 PG (27.0-31.0); MEAN CORPUSCULAR HGB CONC 33.4 g/dL (33.0-36.5); MEAN CORPUSCULAR VOLUME 103.7 FL (78-98); MEAN PLATELET VOLUME 8.2 FL (7.4-10.4); MONOCYTES # (AUTO) 0.3 X10'3 (0-0.9); MONOCYTES % (AUTO) 3.2 % (2-12); NEUTROPHILS # (AUTO) 9.2 X10'3 (1.8-7.7); NEUTROPHILS % (AUTO) 93.7 % (42-75); PLATELET COUNT 194 X10'3 (140-440); RED BLOOD COUNT 2.47 X10'6 (4.70-6.10); RED CELL DISTRIBUTION WIDTH 14.1 % (11.5-14.5); WHITE BLOOD COUNT 9.8 X10'3 (4.5-11.0)
[2024-01-06 05:52] LABS: ALANINE AMINOTRANSFERASE 35 U/L (12-78); ALBUMIN 2.3 G/DL (3.4-5.0); ALBUMIN/GLOBULIN RATIO 0.6 (1.1-1.5); ALKALINE PHOSPHATASE 65 IU/L (46-116); ANION GAP 9 (8-16); ASPARTATE AMINO TRANSFERASE 28 U/L (10-37); BILIRUBIN,TOTAL 0.4 MG/DL (0.1-1.0); BLOOD UREA NITROGEN 45 MG/DL (7-18); BUN/CREATININE RATIO 34.9 (10.0-20.0); CALCIUM 8.3 MG/DL (8.5-10.1); CHLORIDE 94 MMOL/L (99-107); CREATININE 1.29 MG/DL (0.60-1.10); GLUCOSE 141 MG/DL (70-104); MAGNESIUM 1.8 MG/DL (1.5-2.4); POTASSIUM 4.4 MMOL/L (3.5-5.1); SODIUM 125 MMOL/L (135-145); TOTAL CARBON DIOXIDE 21.6 MMOL/L (24-32); TOTAL PROTEIN 5.9 G/DL (6.4-8.2); eCRCL 46 ML/MIN; eGFR 53 ML/MIN
[2024-01-06] MEDS: mag hydrox/Alum hydrox/simeth 30ml oral suspension PO PRN (17:53)
[2024-01-07] VITALS (21 sets, daily range): BP systolic 98–111; BP diastolic 53–75; PULSE 67–91; RESP 16–24; TEMP 97.1–98.9; O2SAT 90–99
[2024-01-07] MEDS: albuterol 2.5 MG/3 ML nebule NEB PRN (01:11)
[2024-01-07 06:56] LABS: BASOPHILS % (AUTO) 0 % (0-1); EOSINOPHILS % (AUTO) 0 % (0-6); HEMOGLOBIN 7.2 g/dl (14.0-17.9); LYMPHOCYTES # (AUTO) 0.3 X10'3 (1.1-4.8); LYMPHOCYTES % (AUTO) 1.7 % (21-51); MEAN CORPUSCULAR HEMOGLOBIN 34.6 PG (27.0-31.0); MEAN CORPUSCULAR HGB CONC 33.3 g/dL (33.0-36.5); MEAN CORPUSCULAR VOLUME 103.9 FL (78-98); MEAN PLATELET VOLUME 8.6 FL (7.4-10.4); MONOCYTES # (AUTO) 0.7 X10'3 (0-0.9); MONOCYTES % (AUTO) 4.5 % (2-12); NEUTROPHILS # (AUTO) 15.3 X10'3 (1.8-7.7); NEUTROPHILS % (AUTO) 93.8 % (42-75); PLATELET COUNT 173 X10'3 (140-440); RED BLOOD COUNT 2.09 X10'6 (4.70-6.10); RED CELL DISTRIBUTION WIDTH 13.9 % (11.5-14.5); WHITE BLOOD COUNT 16.4 X10'3 (4.5-11.0)
[2024-01-07 07:01] LABS: HEMATOCRIT 21.7 % (42.0-52.0)
[2024-01-07 07:16] LABS: ALANINE AMINOTRANSFERASE 32 U/L (12-78); ALBUMIN 2.1 G/DL (3.4-5.0); ALBUMIN/GLOBULIN RATIO 0.7 (1.1-1.5); ALKALINE PHOSPHATASE 51 IU/L (46-116); ANION GAP 6 (8-16); ASPARTATE AMINO TRANSFERASE 20 U/L (10-37); BILIRUBIN,TOTAL 0.4 MG/DL (0.1-1.0); BLOOD UREA NITROGEN 60 MG/DL (7-18); BUN/CREATININE RATIO 49.6 (10.0-20.0); CALCIUM 7.8 MG/DL (8.5-10.1); CHLORIDE 94 MMOL/L (99-107); CREATININE 1.21 MG/DL (0.60-1.10); GLUCOSE 146 MG/DL (70-104); MAGNESIUM 1.9 MG/DL (1.5-2.4); POTASSIUM 4.8 MMOL/L (3.5-5.1); SODIUM 123 MMOL/L (135-145); TOTAL CARBON DIOXIDE 23.2 MMOL/L (24-32); TOTAL PROTEIN 5.2 G/DL (6.4-8.2); eCRCL 49 ML/MIN; eGFR 57 ML/MIN
[2024-01-07 17:31] LABS: HEMATOCRIT 26.7 % (42.0-52.0); HEMOGLOBIN 8.9 g/dl (14.0-17.9); MEAN CORPUSCULAR HEMOGLOBIN 33.4 PG (27.0-31.0); MEAN CORPUSCULAR HGB CONC 33.1 g/dL (33.0-36.5); MEAN CORPUSCULAR VOLUME 100.9 FL (78-98); MEAN PLATELET VOLUME 8.3 FL (7.4-10.4); PLATELET COUNT 161 X10'3 (140-440); RED BLOOD COUNT 2.65 X10'6 (4.70-6.10); RED CELL DISTRIBUTION WIDTH 15.3 % (11.5-14.5)
[2024-01-07] MEDS ORDERED: bisacodyl 10mg suppository rectal RC PRN (18:55)
[2024-01-07] MEDS: pantoprazole 40 MG vial IV SCH (21:18)
[2024-01-07] MEDS: acetaminophen 325mg tablet PO PRN (22:10)
[2024-01-08] VITALS (17 sets, daily range): BP systolic 85–102; BP diastolic 47–61; PULSE 77–102; RESP 15–26; TEMP 97.1–98.6; O2SAT 93–98
[2024-01-08 06:58] LABS: OCCULT BLOOD STOOL POSITIVE (Neg)
[2024-01-08 07:14] LABS: BASOPHILS % (AUTO) 0 % (0-1); EOSINOPHILS % (AUTO) 0 % (0-6); HEMATOCRIT 27.3 % (42.0-52.0); HEMOGLOBIN 9.1 g/dl (14.0-17.9); LYMPHOCYTES # (AUTO) 0.2 X10'3 (1.1-4.8); LYMPHOCYTES % (AUTO) 0.7 % (21-51); MEAN CORPUSCULAR HEMOGLOBIN 33.5 PG (27.0-31.0); MEAN CORPUSCULAR HGB CONC 33.5 g/dL (33.0-36.5); MEAN CORPUSCULAR VOLUME 100.2 FL (78-98); MONOCYTES # (AUTO) 0.8 X10'3 (0-0.9); MONOCYTES % (AUTO) 2.2 % (2-12); NEUTROPHILS # (AUTO) 35.8 X10'3 (1.8-7.7); NEUTROPHILS % (AUTO) 97.1 % (42-75); PLATELET COUNT 165 X10'3 (140-440); RED BLOOD COUNT 2.72 X10'6 (4.70-6.10); RED CELL DISTRIBUTION WIDTH 15.3 % (11.5-14.5)
[2024-01-08 07:19] LABS: WHITE BLOOD COUNT 36.8 X10'3 (4.5-11.0)
[2024-01-08 07:39] LABS: ALANINE AMINOTRANSFERASE 26 U/L (12-78); ALBUMIN 2.1 G/DL (3.4-5.0); ALBUMIN/GLOBULIN RATIO 0.7 (1.1-1.5); ALKALINE PHOSPHATASE 58 IU/L (46-116); ANION GAP 7 (8-16); ASPARTATE AMINO TRANSFERASE 20 U/L (10-37); BILIRUBIN,TOTAL 0.9 MG/DL (0.1-1.0); BLOOD UREA NITROGEN 55 MG/DL (7-18); BUN/CREATININE RATIO 45.8 (10.0-20.0); CHLORIDE 94 MMOL/L (99-107); GLUCOSE 124 MG/DL (70-104); POTASSIUM 4.3 MMOL/L (3.5-5.1); SODIUM 124 MMOL/L (135-145); TOTAL CARBON DIOXIDE 23.1 MMOL/L (24-32); TOTAL PROTEIN 5.2 G/DL (6.4-8.2); eCRCL 49 ML/MIN; eGFR 58 ML/MIN
[2024-01-08 08:34] LABS: PLATELET ESTIMATE NORMAL; TOTAL CELLS COUNTED 100; TOXIC GRANULATION 2+
[2024-01-08 08:36] LABS: BURR CELLS 1+
[2024-01-08] MEDS: normal saline 1000ml 1,000 ML IV SCH ×2 (08:40→21:45)
[2024-01-08] MEDS: pantoprazole 40MG/NS 100ML BAG 100 ML IV SCH (11:16)
[2024-01-08] MEDS: lactose-reduced food (Ensure Enlive) - 237ml bottle PO SCH (13:00)
[2024-01-08] MEDS: methylPREDNISolone sod succ 125mg/2ml vial IV SCH (14:56)
[2024-01-08] MEDS: traMADol 50MG tablet PO PRN (15:16)
[2024-01-08] MEDS: piperacillin/tazo 4.5gm/100ml 100 ML IV SCH (15:54)
[2024-01-08 21:04] LABS: BASOPHILS # (AUTO) 0.1 X10'3 (0-0.2); BASOPHILS % (AUTO) 0.3 % (0-1); EOSINOPHILS % (AUTO) 0 % (0-6); HEMATOCRIT 27.2 % (42.0-52.0); HEMOGLOBIN 8.8 g/dl (14.0-17.9); LYMPHOCYTES # (AUTO) 0.2 X10'3 (1.1-4.8); LYMPHOCYTES % (AUTO) 0.4 % (21-51); MEAN CORPUSCULAR HEMOGLOBIN 32.7 PG (27.0-31.0); MEAN CORPUSCULAR HGB CONC 32.4 g/dL (33.0-36.5); MEAN CORPUSCULAR VOLUME 101.1 FL (78-98); MEAN PLATELET VOLUME 9.1 FL (7.4-10.4); MONOCYTES # (AUTO) 0.7 X10'3 (0-0.9); MONOCYTES % (AUTO) 1.5 % (2-12); NEUTROPHILS # (AUTO) 42.5 X10'3 (1.8-7.7); NEUTROPHILS % (AUTO) 97.8 % (42-75); PLATELET COUNT 153 X10'3 (140-440); RED BLOOD COUNT 2.69 X10'6 (4.70-6.10); RED CELL DISTRIBUTION WIDTH 14.9 % (11.5-14.5)
[2024-01-08 21:16] LABS: ALANINE AMINOTRANSFERASE 16 U/L (12-78); ALBUMIN/GLOBULIN RATIO 0.7 (1.1-1.5); ALKALINE PHOSPHATASE 61 IU/L (46-116); ANION GAP 7 (8-16); ASPARTATE AMINO TRANSFERASE 17 U/L (10-37); BILIRUBIN,TOTAL 0.7 MG/DL (0.1-1.0); BLOOD UREA NITROGEN 53 MG/DL (7-18); BUN/CREATININE RATIO 41.7 (10.0-20.0); CHLORIDE 92 MMOL/L (99-107); CREATININE 1.27 MG/DL (0.60-1.10); GLUCOSE 169 MG/DL (70-104); POTASSIUM 4.2 MMOL/L (3.5-5.1); SODIUM 124 MMOL/L (135-145); TOTAL CARBON DIOXIDE 24.7 MMOL/L (24-32); TOTAL PROTEIN 4.7 G/DL (6.4-8.2); eCRCL 47 ML/MIN; eGFR 54 ML/MIN
[2024-01-08 21:21] LABS: WHITE BLOOD COUNT 43.4 X10'3 (4.5-11.0)
[2024-01-08 21:23] LABS: MAGNESIUM 2.3 MG/DL (1.5-2.4); PRO BRAIN NATRIURETIC PEPTIDE 5948 PG/ML (0-450)
[2024-01-08] MEDS: normal saline 500ml IV soln 1,000 ML IV SCH (22:44)
[2024-01-09] VITALS (32 sets, daily range): BP systolic 78–125; BP diastolic 44–74; PULSE 74–128; RESP 15–34; TEMP 97.4; O2SAT 90–100
[2024-01-09] MEDS: normal saline 1000ml 1,000 ML IV ONE (01:36)
[2024-01-09] MEDS: midodrine 5mg tablet PO ONE (03:00)
[2024-01-09 07:13] LABS: BASOPHILS % (AUTO) 0.1 % (0-1); EOSINOPHILS % (AUTO) 0 % (0-6); HEMATOCRIT 27.7 % (42.0-52.0); LYMPHOCYTES # (AUTO) 0.2 X10'3 (1.1-4.8); LYMPHOCYTES % (AUTO) 0.4 % (21-51); MEAN CORPUSCULAR HGB CONC 32.5 g/dL (33.0-36.5); MEAN CORPUSCULAR VOLUME 101.6 FL (78-98); MEAN PLATELET VOLUME 9.4 FL (7.4-10.4); MONOCYTES # (AUTO) 0.5 X10'3 (0-0.9); MONOCYTES % (AUTO) 1.1 % (2-12); NEUTROPHILS # (AUTO) 41.8 X10'3 (1.8-7.7); NEUTROPHILS % (AUTO) 98.4 % (42-75); PLATELET COUNT 154 X10'3 (140-440); RED BLOOD COUNT 2.73 X10'6 (4.70-6.10); RED CELL DISTRIBUTION WIDTH 15.3 % (11.5-14.5)
[2024-01-09 07:19] LABS: WHITE BLOOD COUNT 42.5 X10'3 (4.5-11.0)
[2024-01-09 07:38] LABS: ALBUMIN 1.9 G/DL (3.4-5.0); ANION GAP 8 (8-16); BLOOD UREA NITROGEN 49 MG/DL (7-18); BUN/CREATININE RATIO 39.2 (10.0-20.0); CALCIUM 7.7 MG/DL (8.5-10.1); CHLORIDE 97 MMOL/L (99-107); CREATININE 1.25 MG/DL (0.60-1.10); GLUCOSE 139 MG/DL (70-104); POTASSIUM 4.3 MMOL/L (3.5-5.1); SODIUM 128 MMOL/L (135-145); eCRCL 48 ML/MIN; eGFR 55 ML/MIN
[2024-01-09 07:54] LABS: ANISOCYTOSIS 1+; PLATELET ESTIMATE NORMAL; TOTAL CELLS COUNTED 100
[2024-01-09] MEDS: ondansetron/PF 4mg/2ml inj IV PRN (10:03)
[2024-01-09] MEDS: succinylcholine 20mg/ml inj IV ONE ×2 (10:54→10:57)
[2024-01-09] MEDS: propofol 1000mg/100ml bottle 100 ML IV ONE (10:54)
[2024-01-09] MEDS: NORepinephrine 8mg/ 250ml NS 250 ML IV SCH (10:55)
[2024-01-09] MEDS: NORepinephrine 8mg/ 250ml NS 250 ML IV ONE (10:57)
[2024-01-09] MEDS: fentaNYL/PF 50MCG/1 ML 2ML syringe IV ONE (10:57)
[2024-01-09] MEDS: fentaNYL/PF 50MCG/1 ML 2ML syringe ONE ×2 (10:58)
[2024-01-09] MEDS: vancomycin 1,750 MG in NS 350ml IV soln IV ONE (11:40)
[2024-01-09 12:29] LABS: ABG HCO3 18.4 mmol/L (21.0-28.0); ABG OXYGEN SATURATION 99.7 % (94.0-98.0); ABG PCO2 (T) 28.6 mmHg (35.0-48.0); ABG PH (T) 7.426 (7.350-7.450); ABG PO2 (T) 255.6 mmHg (83.0-108.0); ALLEN'S TEST POSITIVE; FCOHb 0.1 % (0.5-1.5); FHHb 0.3 % (0.0-5.0); FMetHb 0.3 % (0.0-1.5); FO2Hb 99.3 % (94.0-98.0); MODE VENT - PRVC; PEEP 5 cm H2O; RESPIRATORY RATE 16 b/min; TIDAL VOLUME 400 mL; TOTAL HEMOGLOBIN 10.3 G/dl (13.5-17.5)
[2024-01-09] MEDS: propofol 1000mg/100ml bottle 100 ML IV SCH (12:34)
[2024-01-09] MEDS: FENTANYL-0.9 % NACL/PF 100 ML IV SCH (12:34)
[2024-01-09] MEDS: enoxaparin 40mg/0.4ml syringe SUBCUT SCH (15:16)
[2024-01-09] MEDS ORDERED: acetaminophen 325mg/10.15ml oral unit dose solution OGT PRN (15:31)
[2024-01-09] MEDS ORDERED: mag hydrox/Alum hydrox/simeth 30ml oral suspension OGT PRN (15:32)
[2024-01-09] MEDS ORDERED: magnesium hydroxide 30ml (MOM) UD suspension OGT PRN (15:32)
[2024-01-09] MEDS ORDERED: traMADol 50MG tablet OGT PRN (15:33)
[2024-01-09] MEDS: docusate sodium 100mg/10ml UD cup OGT SCH (20:00)
[2024-01-09] MEDS: atorvastatin 10mg tablet OGT SCH (20:19)
[2024-01-09 21:34] LABS: BASOPHILS # (AUTO) 0.2 X10'3 (0-0.2); EOSINOPHILS % (AUTO) 0 % (0-6); MONOCYTES # (AUTO) 0.5 X10'3 (0-0.9); MONOCYTES % (AUTO) 1.1 % (2-12); RED BLOOD COUNT 2.99 X10'6 (4.70-6.10)
[2024-01-09 21:37] LABS: BASOPHILS % (AUTO) 0.4 % (0-1); HEMATOCRIT 30.4 % (42.0-52.0); LYMPHOCYTES # (AUTO) 0.1 X10'3 (1.1-4.8); LYMPHOCYTES % (AUTO) 0.3 % (21-51); MEAN CORPUSCULAR HEMOGLOBIN 33.6 PG (27.0-31.0); MEAN CORPUSCULAR VOLUME 101.8 FL (78-98); NEUTROPHILS # (AUTO) 43.8 X10'3 (1.8-7.7); NEUTROPHILS % (AUTO) 98.2 % (42-75); PLATELET COUNT 159 X10'3 (140-440); RED CELL DISTRIBUTION WIDTH 15.3 % (11.5-14.5)
[2024-01-09] MEDS: vasopressin inj. 40 UNIT in normal saline 50ml IV soln 38 ML IV SCH (21:50)
[2024-01-09] MEDS: LEVALBUTEROL HCL 1.25 MG/3 ML VIAL.NEB INH ONE (21:51)
[2024-01-09 21:56] LABS: WHITE BLOOD COUNT 44.6 X10'3 (4.5-11.0)
[2024-01-09 22:15] LABS: NUCLEATED RED BLOOD CELLS 2 /100WBC (0-0); TOTAL CELLS COUNTED 100
[2024-01-09 22:16] LABS: PLATELET ESTIMATE NORMAL
[2024-01-09 22:18] LABS: ACANTHOCYTES FEW; BURR CELLS 1+; POLYCHROMASIA 1+
[2024-01-10] VITALS (38 sets, daily range): BP systolic 67–135; BP diastolic 40–75; PULSE 82–122; RESP 17–63; O2SAT 91–97
[2024-01-10 02:09] LABS: BASOPHILS # (AUTO) 0.2 X10'3 (0-0.2); EOSINOPHILS % (AUTO) 0 % (0-6); HEMOGLOBIN 10.5 g/dl (14.0-17.9); MEAN CORPUSCULAR HEMOGLOBIN 33.1 PG (27.0-31.0); MONOCYTES # (AUTO) 0.6 X10'3 (0-0.9); MONOCYTES % (AUTO) 1.2 % (2-12); NEUTROPHILS % (AUTO) 97.9 % (42-75); RED BLOOD COUNT 3.17 X10'6 (4.70-6.10); RED CELL DISTRIBUTION WIDTH 15.2 % (11.5-14.5)
[2024-01-10 02:13] LABS: BASOPHILS % (AUTO) 0.3 % (0-1); LYMPHOCYTES # (AUTO) 0.3 X10'3 (1.1-4.8); LYMPHOCYTES % (AUTO) 0.6 % (21-51); MEAN CORPUSCULAR HGB CONC 32.7 g/dL (33.0-36.5); MEAN CORPUSCULAR VOLUME 101.2 FL (78-98); MEAN PLATELET VOLUME 10.3 FL (7.4-10.4); NEUTROPHILS # (AUTO) 46.8 X10'3 (1.8-7.7); PLATELET COUNT 160 X10'3 (140-440)
[2024-01-10 02:25] LABS: WHITE BLOOD COUNT 47.8 X10'3 (4.5-11.0)
[2024-01-10 02:27] LABS: ALANINE AMINOTRANSFERASE 20 U/L (12-78); ALBUMIN 1.7 G/DL (3.4-5.0); ALBUMIN/GLOBULIN RATIO 0.6 (1.1-1.5); ALKALINE PHOSPHATASE 82 IU/L (46-116); ANION GAP 13 (8-16); ASPARTATE AMINO TRANSFERASE 17 U/L (10-37); BILIRUBIN,TOTAL 1.2 MG/DL (0.1-1.0); BLOOD UREA NITROGEN 52 MG/DL (7-18); BUN/CREATININE RATIO 34.2 (10.0-20.0); CALCIUM 7.7 MG/DL (8.5-10.1); CHLORIDE 98 MMOL/L (99-107); CREATININE 1.52 MG/DL (0.60-1.10); GLUCOSE 200 MG/DL (70-104); LIPASE 7 U/L (16-77); MAGNESIUM 2.3 MG/DL (1.5-2.4); PHOSPHORUS 3.3 MG/DL (2.3-4.5); POTASSIUM 4.5 MMOL/L (3.5-5.1); SODIUM 130 MMOL/L (135-145); TOTAL CARBON DIOXIDE 19.4 MMOL/L (24-32); TOTAL PROTEIN 4.6 G/DL (6.4-8.2); TRIGLYCERIDES 170 MG/DL (20-135); eCRCL 39 ML/MIN; eGFR 44 ML/MIN
[2024-01-10] MEDS: LEVALBUTEROL HCL 1.25 MG/3 ML VIAL.NEB INH ONE (03:49)
[2024-01-10 04:08] LABS: ABG BASE EXCESS -6.6 mmol/L (-2.0-3.0); ABG HCO3 16.3 mmol/L (21.0-28.0); ABG OXYGEN SATURATION 95.3 % (94.0-98.0); ABG PCO2 (T) 24.8 mmHg (35.0-48.0); ABG PH (T) 7.434 (7.350-7.450); ABG PO2 (T) 70.2 mmHg (83.0-108.0); ALLEN'S TEST Modified; FCOHb 0.4 % (0.5-1.5); FHHb 4.7 % (0.0-5.0); FMetHb 0.3 % (0.0-1.5); FO2Hb 94.6 % (94.0-98.0); MODE CMV PRVC IT 0.9; PATIENT TEMPERATURE 36.5; PEEP 5 cm H2O; RESPIRATORY RATE 16 b/min; TIDAL VOLUME 400 mL; TOTAL HEMOGLOBIN 11.5 G/dl (13.5-17.5)
[2024-01-10 04:09] LABS: NUCLEATED RED BLOOD CELLS 2 /100WBC (0-0); TOTAL CELLS COUNTED 100
[2024-01-10 04:10] LABS: PLATELET ESTIMATE NORMAL
[2024-01-10 04:11] LABS: POLYCHROMASIA 1+
[2024-01-10 04:12] LABS: ACANTHOCYTES FEW
[2024-01-10 04:13] LABS: BURR CELLS 1+
[2024-01-10] MEDS: COMMUNICATION ORDER 1 EA MISC MC ONE ×2 (11:40→18:00)
[2024-01-10] MEDS: fentaNYL/PF 50MCG/1 ML 2ML syringe IV ONE (12:25)
[2024-01-10 13:08] LABS: ABG BASE EXCESS -9.7 mmol/L (-2.0-3.0); ABG HCO3 13.2 mmol/L (21.0-28.0); ABG OXYGEN SATURATION 93.1 % (94.0-98.0); ABG PCO2 (T) 22.7 mmHg (35.0-48.0); ABG PH (T) 7.383 (7.350-7.450); ABG PO2 (T) 67.2 mmHg (83.0-108.0); ALLEN'S TEST POSITIVE; FCOHb 0.2 % (0.5-1.5); FHHb 6.9 % (0.0-5.0); FMetHb 0.3 % (0.0-1.5); FO2Hb 92.6 % (94.0-98.0); MODE VENT - AC/PRVC; PATIENT TEMPERATURE 37.4; PEEP 5 cm H2O; RESPIRATORY RATE 16 b/min; TIDAL VOLUME 400 mL; TOTAL HEMOGLOBIN 13.2 G/dl (13.5-17.5)
[2024-01-10] MEDS: vancomycin/NS 1 GM ADD-VANTAGE 250 ML IV SCH (13:29)
[2024-01-10] MEDS: mineral oil/petrolatum ophthal oint EACHEYE SCH (13:32)
[2024-01-10] MEDS: sodium bicarbonate (8.4%) 1 mEq/ml syringe IV ONE (14:20)
[2024-01-10] MEDS: sodium bicarbonate 1meq/ml inj 150 ML in dextrose 5%-water 1,000 ML IV SCH (15:01)
[2024-01-10] MEDS: albumin (human) 25% 100 ML IV solution IV ONE (15:53)
[2024-01-10 16:45] LABS: ABG BASE EXCESS -10.3 mmol/L (-2.0-3.0); ABG HCO3 13.6 mmol/L (21.0-28.0); ABG OXYGEN SATURATION 93.2 % (94.0-98.0); ABG PCO2 (T) 24.8 mmHg (35.0-48.0); ABG PH (T) 7.359 (7.350-7.450); ABG PO2 (T) 72.5 mmHg (83.0-108.0); ALLEN'S TEST POSITIVE; FCOHb 0.3 % (0.5-1.5); FHHb 6.8 % (0.0-5.0); FMetHb 0.3 % (0.0-1.5); FO2Hb 92.6 % (94.0-98.0); MODE VENT - AC/PRVC; PATIENT TEMPERATURE 37.2; PEEP 5 cm H2O; RESPIRATORY RATE 16 b/min; TIDAL VOLUME 400 mL; TOTAL HEMOGLOBIN 10.3 G/dl (13.5-17.5)
[2024-01-10] MEDS: albumin (Human) 5% 250ml 250 ML IV SCH (17:16)
[2024-01-10] MEDS ORDERED: albumin (Human) 5% 250ml 250 ML IV SCH ×2 (20:00)
[2024-01-11] VITALS (22 sets, daily range): BP systolic 31–113; BP diastolic 20–64; PULSE 80–145; RESP 29–48; O2SAT 77–96
[2024-01-11 01:43] LABS: BASOPHILS % (AUTO) 0.2 % (0-1); NEUTROPHILS % (AUTO) 97.4 % (42-75); RED BLOOD COUNT 3.04 X10'6 (4.70-6.10)
[2024-01-11 01:46] LABS: BASOPHILS # (AUTO) 0.1 X10'3 (0-0.2); EOSINOPHILS # (AUTO) 0.1 X10'3 (0-0.9); EOSINOPHILS % (AUTO) 0.1 % (0-6); HEMATOCRIT 31.1 % (42.0-52.0); HEMOGLOBIN 9.9 g/dl (14.0-17.9); LYMPHOCYTES # (AUTO) 0.6 X10'3 (1.1-4.8); LYMPHOCYTES % (AUTO) 0.7 % (21-51); MEAN CORPUSCULAR HEMOGLOBIN 32.5 PG (27.0-31.0); MEAN CORPUSCULAR HGB CONC 31.7 g/dL (33.0-36.5); MEAN CORPUSCULAR VOLUME 102.5 FL (78-98); MEAN PLATELET VOLUME 11.8 FL (7.4-10.4); MONOCYTES # (AUTO) 1.4 X10'3 (0-0.9); MONOCYTES % (AUTO) 1.6 % (2-12); NEUTROPHILS # (AUTO) 84.7 X10'3 (1.8-7.7); PLATELET COUNT 95 X10'3 (140-440); RED CELL DISTRIBUTION WIDTH 15.7 % (11.5-14.5)
[2024-01-11 01:53] LABS: ALANINE AMINOTRANSFERASE 18 U/L (12-78); ALBUMIN 3.2 G/DL (3.4-5.0); ALBUMIN/GLOBULIN RATIO 2.1 (1.1-1.5); ALKALINE PHOSPHATASE 63 IU/L (46-116); ANION GAP 13 (8-16); ASPARTATE AMINO TRANSFERASE 27 U/L (10-37); BILIRUBIN,TOTAL 1.6 MG/DL (0.1-1.0); BLOOD UREA NITROGEN 58 MG/DL (7-18); BUN/CREATININE RATIO 27.6 (10.0-20.0); CALCIUM 7.1 MG/DL (8.5-10.1); CHLORIDE 99 MMOL/L (99-107); GLUCOSE 214 MG/DL (70-104); MAGNESIUM 2.3 MG/DL (1.5-2.4); PHOSPHORUS 3.9 MG/DL (2.3-4.5); POTASSIUM 4.3 MMOL/L (3.5-5.1); PREALBUMIN 9.9 MG/DL (19-36); SODIUM 133 MMOL/L (135-145); TOTAL PROTEIN 4.7 G/DL (6.4-8.2); eCRCL 28 ML/MIN; eGFR 30 ML/MIN
[2024-01-11 02:54] LABS: ABG BASE EXCESS -5.7 mmol/L (-2.0-3.0); ABG HCO3 17.3 mmol/L (21.0-28.0); ABG OXYGEN SATURATION 91.6 % (94.0-98.0); ABG PCO2 (T) 26.8 mmHg (35.0-48.0); ABG PH (T) 7.428 (7.350-7.450); ABG PO2 (T) 61.4 mmHg (83.0-108.0); ALLEN'S TEST Modified; FCOHb 0.2 % (0.5-1.5); FHHb 8.4 % (0.0-5.0); FMetHb 0.3 % (0.0-1.5); FO2Hb 91.1 % (94.0-98.0); MODE PRVC; PATIENT TEMPERATURE 37.2; PEEP 5 cm H2O; RESPIRATORY RATE 16 b/min; TIDAL VOLUME 400 mL
[2024-01-11 03:06] LABS: BANDS% (MANUAL) 5 % (0-10); TOTAL CELLS COUNTED 100
[2024-01-11 03:07] LABS: MONOCYTES % (MANUAL) 2 % (2-12); NUCLEATED RED BLOOD CELLS 2 /100WBC (0-0); PLATELET ESTIMATE DECREASED; POLYCHROMASIA FEW
[2024-01-11 03:08] LABS: ANISOCYTOSIS 1+
[2024-01-11 03:09] LABS: ACANTHOCYTES FEW; BURR CELLS 1+; SCHISTOCYTES FEW
[2024-01-11 03:16] LABS: METAMYLEOCYTES% (MANUAL) 3 % (0-0); MYELOCYTES % (MANUAL) 6 % (0-0)
[2024-01-11 03:18] LABS: LYMPHOCYTES % (MANUAL) 14 % (21-51)
[2024-01-11 03:23] LABS: NEUTROPHILS % (MANUAL) 67 % (42-75); REACTIVE LYMPHOCYTES % 1 % (0-0)
[2024-01-11] MEDS: amiodarone 150mg/dext, iso-os 100 ML IV ONE (04:59)
[2024-01-11] MEDS: amiodarone/D5 360MG/200ML BAG 200 ML IV SCH (06:58)
[2024-01-11] MEDS ORDERED: VANCOMYCIN 125 MG/5 ML oral SOLN.RECON 5mL UD syringe (FIRVANQ) NG SCH (08:00)
[2024-01-11] MEDS: VANCOMYCIN 125 MG/5 ML oral SOLN.RECON 5mL UD syringe (FIRVANQ) NG SCH (08:00)
[2024-01-11] MEDS: hydrocortisone sod succ/PF 100mg/2ml inj. IV SCH (08:09)
[2024-01-11] MEDS: metroNIDAZOLE-Flagyl 500mg/NS 100 ML IV SCH (08:09)
[2024-01-11] MEDS: ringers solution, lacted 1,000 ML IV SCH (08:10)
[2024-01-11 08:20] LABS: C DIFF ANTIGEN POSITIVE (NEGATIVE); C DIFF SPECIMEN=DIARRHEA? ACCEPTABLE; C DIFFICILE TOXINS A&B POSITIVE (Neg)
[2024-01-11] MEDS: ringers solution, lacted 1,000 ML IV ONE ×2 (08:51)
[2024-01-11] MEDS: VANCOMYCIN IR SCH (09:05)
[2024-01-11] MEDS: NORMAL SALINE IR SCH (09:05)
[2024-01-11] MEDS: pantoprazole 40MG/NS 100ML BAG 100 ML IV SCH (09:06)
[2024-01-11] MEDS: COMMUNICATION ORDER 1 EA MISC MC ONE (11:03)
[2024-01-11] MEDS ORDERED: morphine 10mg/ml inj. IV PRN (13:45)
[2024-01-12] MEDS ORDERED: VANCOMYCIN LEVEL IV ONE (12:30)
== END 2024-01-11 16:05 | DRG 871 ==
LOC: ER 16:12 → UNDOADMIN 19:16 → ED HOLD 19:16 → ORTHO 4S 21:50 → PCU 3S 01-08 22:10 → CICU 2S 01-09 10:47
PROVIDERS: ADMIT Nurse Practitioner Family; ATTEND Nurse Practitioner Family
PROC: BW241ZZ Computerized Tomography (CT Scan) of Chest and Abdomen using Low Osmolar Contrast (ICD-10-PCS; 2024-01-03)
PROC: 30233N1 Transfusion of Nonautologous Red Blood Cells into Peripheral Vein, Percutaneous Approach (ICD-10-PCS; principal; 2024-01-07)
PROC: 0BH17EZ Insertion of Endotracheal Airway into Trachea, Via Natural or Artificial Opening (ICD-10-PCS; 2024-01-09)
PROC: 5A1945Z Respiratory Ventilation, 24-96 Consecutive Hours (ICD-10-PCS; 2024-01-09)
PROC: 02HV33Z Insertion of Infusion Device into Superior Vena Cava, Percutaneous Approach (ICD-10-PCS; 2024-01-09)
PROC: B548ZZA Ultrasonography of Superior Vena Cava, Guidance (ICD-10-PCS; 2024-01-09)
PROC: 03HY32Z Insertion of Monitoring Device into Upper Artery, Percutaneous Approach (ICD-10-PCS; 2024-01-11)
PROC: 5A12012 Performance of Cardiac Output, Single, Manual (ICD-10-PCS; 2024-01-11)
DX: A41.9 Sepsis, unspecified organism (principal); J18.9 Pneumonia, unspecified organism; J96.01 Acute respiratory failure with hypoxia; R65.21 Severe sepsis with septic shock; J44.1 Chronic obstructive pulmonary disease with (acute) exacerbation; K92.2 Gastrointestinal hemorrhage, unspecified; A04.72 Enterocolitis due to Clostridium difficile, not specified as recurrent; J44.0 Chronic obstructive pulmonary disease with (acute) lower respiratory infection; J47.0 Bronchiectasis with acute lower respiratory infection; J98.11 Atelectasis; K56.7 Ileus, unspecified; I13.0 Hypertensive heart and chronic kidney disease with heart failure and stage 1 through stage 4 chronic kidney disease, or unspecified chronic kidney disease; N17.9 Acute kidney failure, unspecified; D53.9 Nutritional anemia, unspecified; D72.823 Leukemoid reaction; J43.9 Emphysema, unspecified; K80.20 Calculus of gallbladder without cholecystitis without obstruction; N18.9 Chronic kidney disease, unspecified; N40.0 Benign prostatic hyperplasia without lower urinary tract symptoms; E78.00 Pure hypercholesterolemia, unspecified; I25.10 Atherosclerotic heart disease of native coronary artery without angina pectoris; I25.2 Old myocardial infarction; I27.20 Pulmonary hypertension, unspecified; Z20.822 Contact with and (suspected) exposure to COVID-19; G89.29 Other chronic pain; I48.91 Unspecified atrial fibrillation; I50.9 Heart failure, unspecified; M54.9 Dorsalgia, unspecified; K21.9 Gastro-esophageal reflux disease without esophagitis; Z79.01 Long term (current) use of anticoagulants; Z80.1 Family history of malignant neoplasm of trachea, bronchus and lung; Z82.3 Family history of stroke; Z82.49 Family history of ischemic heart disease and other diseases of the circulatory system; Z88.1 Allergy status to other antibiotic agents; Z90.49 Acquired absence of other specified parts of digestive tract; Z95.1 Presence of aortocoronary bypass graft; Z95.2 Presence of prosthetic heart valve; Z98.1 Arthrodesis status; Z88.8 Allergy status to other drugs, medicaments and biological substances
CPT/HCPCS: 20950; 36415; 36430; 36600; 71045; 71250; 73110; 74018; 74176; 80048; 80053; 82272; 82803; 82948; 83036; 83605; 83690; 83735; 83880; 84100; 84134; 84145; 84439; 84443; 84478; 84480; 84484; 85007; 85018; 85025; 85027; 85379; 86140; 86885; 86900; 86901; 86920; 87040; 87045; 87046; 87070; 87081; 87324; 87449; 87811; 89055; 93005; 94002; 94003; 94640; 94760; 96365; 96375; 97110; 97161; 97530; 97535; 99285; A4615; A4620; A6213; A6258; A6449; A6590; A7015; C1751; C1758; G0378; J0282; J0330; J0696; J1650; J1720; J1815; J2405; J2470; J2543; J2704; J2919; J3010; J3370; J3490; J7030; J7040; J7050; J7070; J7120; J7614; P9016; P9045; P9047